=== PATIENT | female | born 1970 | race Two or more races ===

== ENCOUNTER 2020-11-12 08:57 | Inpatient (IN) | payer MEDICAID, OTHER ==
[~2020-11-12] VITALS: Ht 162.6 cm; Wt 93.3 kg
[2020-11-12] MEDS ORDERED: SODIUM CHLORIDE 0.9% 1,000 ML IV ONE ×2 (09:45)
[2020-11-12 09:50] LABS: Basophils # (auto) 0 10 ^3/uL (0-0.2); Eosinophils # (auto) 0 10 ^3/uL (0-0.8); Eosinophils % (auto) 0.3 % (0.0-7.0); Hemoglobin 11.9 g/dL (12.2-16.2); Lymphocytes # (auto) 0.7 10 ^3/uL (0.4-5.4); Monocytes # (auto) 0.4 10 ^3/uL (0-1.3); Neutrophils # (auto) 3.6 10 ^3/uL (1.6-8.6); Nucleated Red Blood Cells % 0.1 %; White Blood Cell 4.7 10^3/uL (4.4-10.8)
[2020-11-12 09:53] LABS: Basophils % (auto) 0.2 % (0.0-2.0); Hematocrit 36.8 % (36.0-46.0); Lymphocytes % (auto) 14.2 % (10.0-50.0); Mean Corpuscular Hemoglobin 25.9 pg (28.0-32.0); Mean Corpuscular Hgb Conc. 32.3 g/dL (32.0-36.0); Mean Corpuscular Volume 80.2 fL (80.0-100.0); Monocytes % (auto) 8.9 % (0.0-12.0); Neutrophils % (auto) 76.4 % (37.0-80.0); Red Blood Cells 4.59 10^6/uL (4.0-5.20)
[2020-11-12 09:55] LABS: Red Cell Distribution Width 21.3 % (11.8-14.3)
[2020-11-12 10:05] LABS: Albumin 3.4 g/dL (3.4-5.0); Calcium 9.1 mg/dL (8.5-10.1); Potassium 3.4 mmol/L (3.5-5.1)
[2020-11-12 10:09] LABS: BUN/Creatinine Ratio 7.3; Bilirubin, Total 1.4 mg/dL (0.2-1.0); Total Protein 9.7 g/dL (6.4-8.2)
[2020-11-12 10:14] LABS: Urine Bacteria FEW /hpf (None Seen); Urine Blood Negative /uL (Negative); Urine Mucus MODERATE (None Seen); Urine Specific Gravity 1.026 (1.001-1.035); Urine WBC 5 /hpf (0 - 5)
[2020-11-12] MEDS ORDERED: ONDANSETRON HCL 4 MG/2 ML VIAL IV ONE (10:30)
[2020-11-12] MEDS ORDERED: POTASSIUM EFFERVESENT TAB 25 MEQ PO ONE ×2 (10:30→11:15)
[2020-11-12] MEDS ORDERED: KETOROLAC TROMETH 30 MG/ML 1ML VIAL IV ONE (10:30)
[2020-11-12] MEDS ORDERED: cefTRIAXone 1GM/50ML D5W 50 ML IV ONE (11:15)
[2020-11-12] MEDS ORDERED: metroNIDAZOLE 500MG/100ML 100 ML IV ONE (11:15)
[2020-11-12] MEDS ORDERED: FOLIC ACID 1 MG, MULTIPLE VITAMIN 10 ML, MAGNESIUM SULF SDV 50% 8 MEQ, THIAMINE INJ 100... INJ SCH ×5 (12:00)
[2020-11-12] MEDS: PANTOPRAZOLE 40 MG/10 ML VIAL INJ IV SCH (12:18)
[2020-11-12] MEDS: LACTATED RINGER'S 1,000 ML IV SCH ×2 (12:18→21:21)
[2020-11-12 12:35] LABS: Amphetamine Screen, Urine NEGATIVE (NEGATIVE); Barbiturate Scree,Urine NEGATIVE (NEGATIVE); Benzodiazephine Screen, Urine POSITIVE (NEGATIVE); Cannabinoid Screen, Urine POSITIVE (NEGATIVE); Cocaine Screen, Urine NEGATIVE (NEGATIVE); Opiate Scree,Urine POSITIVE (NEGATIVE)
[2020-11-12 12:42] LABS: Phencyclidine Screen, Urine NEGATIVE (NEGATIVE)
[2020-11-12] MEDS: HYDROmorphone HCL 2 MG/ML VL IV PRN ×3 (12:54→21:20)
[2020-11-12] MEDS: ONDANSETRON HCL 4 MG/2 ML VIAL IV PRN (17:06)
[2020-11-12] MEDS: LORazepam 2MG/ML-1ML VIAL IV PRN (22:51)
[2020-11-13] MEDS: HYDROmorphone HCL 2 MG/ML VL IV PRN ×6 (01:22→23:45)
[2020-11-13] MEDS: ACETAMINOPHEN 325 MG TAB PO PRN ×2 (01:34→06:55)
[2020-11-13] MEDS: LACTATED RINGER'S 1,000 ML IV SCH ×3 (03:46→23:42)
[2020-11-13 04:44] VITALS: BP 133/83
[2020-11-13] MEDS ORDERED: CETI10TA2 PO (04:58)
[2020-11-13] MEDS ORDERED: FERR-20 PO (04:58)
[2020-11-13] MEDS ORDERED: MECL25TA18 PO (04:58)
[2020-11-13] MEDS ORDERED: THIA100T10 PO (04:58)
[2020-11-13] MEDS ORDERED: ALPR1TAB2 PO (04:58)
[2020-11-13] MEDS ORDERED: TRAZ100T3 PO (04:58)
[2020-11-13] MEDS: ONDANSETRON HCL 4 MG/2 ML VIAL IV PRN (05:40)
[2020-11-13 07:48] LABS: Basophils # (auto) 0 10 ^3/uL (0-0.2); Basophils % (auto) 0.3 % (0.0-2.0); Eosinophils # (auto) 0 10 ^3/uL (0-0.8); Eosinophils % (auto) 0.5 % (0.0-7.0); Lymphocytes # (auto) 0.9 10 ^3/uL (0.4-5.4); Lymphocytes % (auto) 21.5 % (10.0-50.0); Monocytes # (auto) 0.4 10 ^3/uL (0-1.3); White Blood Cell 4.2 10^3/uL (4.4-10.8)
[2020-11-13 07:51] LABS: Hematocrit 33.5 % (36.0-46.0); Hemoglobin 10.9 g/dL (12.2-16.2); Mean Corpuscular Hemoglobin 26.5 pg (28.0-32.0); Mean Corpuscular Hgb Conc. 32.5 g/dL (32.0-36.0); Mean Corpuscular Volume 81.3 fL (80.0-100.0); Monocytes % (auto) 8.8 % (0.0-12.0); Neutrophils # (auto) 2.9 10 ^3/uL (1.6-8.6); Neutrophils % (auto) 68.9 % (37.0-80.0); Nucleated Red Blood Cells % 0.1 %; Red Blood Cells 4.12 10^6/uL (4.0-5.20)
[2020-11-13 07:57] LABS: Albumin 2.6 g/dL (3.4-5.0); Calcium 8.3 mg/dL (8.5-10.1); Potassium 3.4 mmol/L (3.5-5.1)
[2020-11-13 08:00] VITALS: BP 119/74
[2020-11-13 08:01] LABS: BUN/Creatinine Ratio 5.1; Bilirubin, Total 1.1 mg/dL (0.2-1.0); Total Protein 7.5 g/dL (6.4-8.2)
[2020-11-13] MEDS: PANTOPRAZOLE 40 MG/10 ML VIAL INJ IV SCH (10:00)
[2020-11-13] MEDS ORDERED: POTASSIUM EFFERVESENT TAB 25 MEQ PO ONE (11:45)
[2020-11-13] MEDS ORDERED: cefTRIAXone 1GM/50ML D5W 50 ML IV ONE (11:45)
[2020-11-13 12:00] VITALS: BP 143/90
[2020-11-13] MEDS: FOLIC ACID 1 MG, MULTIPLE VITAMIN 10 ML, MAGNESIUM SULF SDV 50% 8 MEQ, THIAMINE INJ 100... INJ SCH ×5 (12:00)
[2020-11-13] MEDS: LORazepam 2MG/ML-1ML VIAL IV PRN (13:32)
[2020-11-13] MEDS: metroNIDAZOLE 500 MG TAB PO SCH ×2 (14:00→22:00)
[2020-11-13 15:56] VITALS: BP 124/76
[2020-11-13 22:17] VITALS: BP 150/89
[2020-11-14] MEDS: LACTATED RINGER'S 1,000 ML IV SCH ×2 (01:05→14:29)
[2020-11-14] MEDS: HYDROmorphone HCL 2 MG/ML VL IV PRN ×5 (03:50→23:42)
[2020-11-14 05:27] VITALS: BP 138/94
[2020-11-14] MEDS: metroNIDAZOLE 500 MG TAB PO SCH ×3 (06:00→21:46)
[2020-11-14 09:23] VITALS: BP 149/95
[2020-11-14] MEDS: cefTRIAXone 1GM/50ML D5W 50 ML IV SCH (11:10)
[2020-11-14] MEDS: PANTOPRAZOLE 40 MG/10 ML VIAL INJ IV SCH (11:10)
[2020-11-14] MEDS: ONDANSETRON HCL 4 MG/2 ML VIAL IV PRN ×2 (11:54→18:19)
[2020-11-14 13:11] VITALS: BP 137/95
[2020-11-14] MEDS: LORazepam 2MG/ML-1ML VIAL IV PRN ×2 (13:14→23:42)
[2020-11-14 14:15] LABS: INR 1.53 (0.9-1.15); Partial Thromboplastin Time 32.6 sec (23.0-31.2)
[2020-11-14 16:40] VITALS: BP 127/86
[2020-11-14] MEDS: TEMAZEPAM 15 MG CAP PO PRN (21:46)
[2020-11-14 22:00] VITALS: BP 134/87
[2020-11-15] VITALS (9 sets, daily range): BP systolic 102–146; BP diastolic 66–91
[2020-11-15] MEDS: HYDROmorphone HCL 2 MG/ML VL IV PRN ×7 (03:30→23:02)
[2020-11-15] MEDS: LACTATED RINGER'S 1,000 ML IV SCH ×2 (03:30→17:52)
[2020-11-15] MEDS: metroNIDAZOLE 500 MG TAB PO SCH ×3 (06:00→21:33)
[2020-11-15] MEDS: PANTOPRAZOLE 40 MG/10 ML VIAL INJ IV SCH (09:02)
[2020-11-15] MEDS: cefTRIAXone 1GM/50ML D5W 50 ML IV SCH (09:02)
[2020-11-15] MEDS: ONDANSETRON HCL 4 MG/2 ML VIAL IV PRN ×2 (09:03→18:27)
[2020-11-15] MEDS: FOLIC ACID 1 MG, MULTIPLE VITAMIN 10 ML, MAGNESIUM SULF SDV 50% 8 MEQ, THIAMINE INJ 100... INJ SCH ×5 (12:00)
[2020-11-15] MEDS ORDERED: ceFAZolin 1GM/50ML 50 ML IV ONE (12:30)
[2020-11-15] MEDS ORDERED: NEOSTIGMINE 1 MG/ML INJ (10mg/10ML VIAL) IV ONE (12:45)
[2020-11-15] MEDS ORDERED: GLYCOPYRROLATE 0.2 MG/ML 1ML VIAL IV ONE (12:45)
[2020-11-15] MEDS ORDERED: fentaNYL CITRATE 100 MCG/2 ML VL ONE (12:49)
[2020-11-15] MEDS ORDERED: MIDAZOLAM HCL 2MG/2ML 2ml VIAL (1mg/ml) ONE (12:49)
[2020-11-15] MEDS ORDERED: MEPERIDINE HCL (25 MG/ML) 1ML VIAL ONE (12:49)
[2020-11-15] MEDS ORDERED: SUCCINYLCHOLINE CHLORIDE 20 MG/ML 10ML VIAL IV ONE (12:57)
[2020-11-15] MEDS ORDERED: DexAMETHasone SOD PHOS 10MG/1ML VIAL INJ ONE (13:08)
[2020-11-15] MEDS ORDERED: BUPIVACAINE 0.25% INJ 50ML VIAL ONE (13:14)
[2020-11-15] MEDS ORDERED: PROPOFOL 10 MG/ML 20 ML IV ONE (13:15)
[2020-11-15] MEDS ORDERED: ONDANSETRON HCL 4 MG/2 ML VIAL ONE (13:15)
[2020-11-15] MEDS ORDERED: LABETALOL HCL 5 MG/ML 4ML SYRINGE IV PRN (13:30)
[2020-11-15] MEDS ORDERED: ONDANSETRON HCL 4 MG/2 ML VIAL IV PRN (13:30)
[2020-11-15] MEDS ORDERED: MIDAZOLAM HCL 2MG/2ML 2ml VIAL (1mg/ml) IV PRN (13:30)
[2020-11-15] MEDS ORDERED: KETOROLAC TROMETH 30 MG/ML 1ML VIAL IV ONE (13:30)
[2020-11-15] MEDS ORDERED: ePHEDrine SULFATE 50 MG/ML AMP IV PRN (13:30)
[2020-11-15] MEDS ORDERED: MORPHINE SULFATE 4 MG/ML SYR/VIAL IV PRN (13:30)
[2020-11-15] MEDS: LORazepam 2MG/ML-1ML VIAL IV PRN (20:11)
[2020-11-16] MEDS: HYDROmorphone HCL 2 MG/ML VL IV PRN ×2 (02:59→08:21)
[2020-11-16 05:08] VITALS: BP 131/80
[2020-11-16 05:15] LABS: Basophils # (auto) 0 10 ^3/uL (0-0.2); Eosinophils # (auto) 0 10 ^3/uL (0-0.8); Lymphocytes # (auto) 0.5 10 ^3/uL (0.4-5.4); Lymphocytes % (auto) 14.9 % (10.0-50.0); Monocytes # (auto) 0.4 10 ^3/uL (0-1.3); Neutrophils % (auto) 72.9 % (37.0-80.0)
[2020-11-16 05:16] LABS: Basophils % (auto) 0.1 % (0.0-2.0); Eosinophils % (auto) 0.1 % (0.0-7.0); Hematocrit 31.9 % (36.0-46.0); Hemoglobin 10.2 g/dL (12.2-16.2); Mean Corpuscular Hemoglobin 26.2 pg (28.0-32.0); Mean Corpuscular Volume 81.8 fL (80.0-100.0); Neutrophils # (auto) 2.4 10 ^3/uL (1.6-8.6); White Blood Cell 3.3 10^3/uL (4.4-10.8)
[2020-11-16 05:27] LABS: Red Cell Distribution Width 21.9 % (11.8-14.3)
[2020-11-16] MEDS: metroNIDAZOLE 500 MG TAB PO SCH ×3 (05:29→21:04)
[2020-11-16] MEDS: LACTATED RINGER'S 1,000 ML IV SCH (05:29)
[2020-11-16 05:32] LABS: Albumin 2.7 g/dL (3.4-5.0); Calcium 8.5 mg/dL (8.5-10.1); Potassium 3.7 mmol/L (3.5-5.1)
[2020-11-16 05:36] LABS: Bilirubin, Total 1.1 mg/dL (0.2-1.0); Total Protein 7.6 g/dL (6.4-8.2)
[2020-11-16 09:00] VITALS: BP 123/73
[2020-11-16] MEDS: PANTOPRAZOLE 40 MG/10 ML VIAL INJ IV SCH (10:25)
[2020-11-16] MEDS: cefTRIAXone 1GM/50ML D5W 50 ML IV SCH (10:25)
[2020-11-16 13:00] VITALS: BP 123/79
[2020-11-16] MEDS: LORazepam 2MG/ML-1ML VIAL IV PRN (14:35)
[2020-11-16] MEDS ORDERED: HYDROmorphone HCL 2 MG/ML VL IV PRN (15:30)
[2020-11-16 17:00] VITALS: BP 118/74
[2020-11-16] MEDS: TEMAZEPAM 15 MG CAP PO PRN (21:04)
[2020-11-16 21:49] VITALS: BP 134/79
[2020-11-17] MEDS ORDERED: HYDROmorphone HCL 2 MG/ML VL IV PRN (00:15)
[2020-11-17 04:38] VITALS: BP 126/53
[2020-11-17] MEDS: LORazepam 2MG/ML-1ML VIAL IV PRN ×2 (05:18→20:05)
[2020-11-17] MEDS: metroNIDAZOLE 500 MG TAB PO SCH ×3 (05:18→22:06)
[2020-11-17] MEDS: HYDROcodone-ACET 5/325MG TAB PO PRN ×2 (06:27→23:39)
[2020-11-17 08:00] VITALS: BP 128/82
[2020-11-17] MEDS ORDERED: HYDROmorphone HCL 2 MG/ML VL IV ONE (08:45)
[2020-11-17] MEDS: cefTRIAXone 1GM/50ML D5W 50 ML IV SCH (09:04)
[2020-11-17] MEDS: PANTOPRAZOLE 40 MG/10 ML VIAL INJ IV SCH (09:05)
[2020-11-17 12:00] VITALS: BP 117/80
[2020-11-17] MEDS: HYDROmorphone HCL 2 MG/ML VL IV PRN ×3 (13:59→22:06)
[2020-11-17] MEDS: ACETAMINOPHEN 325 MG TAB PO PRN (15:37)
[2020-11-17 16:00] VITALS: BP 123/75
[2020-11-17] MEDS: ONDANSETRON HCL 4 MG/2 ML VIAL IV PRN (20:05)
[2020-11-17 21:54] VITALS: BP 128/78
[2020-11-18] MEDS: HYDROmorphone HCL 2 MG/ML VL IV PRN ×5 (02:44→20:46)
[2020-11-18 04:43] VITALS: BP 121/74
[2020-11-18] MEDS: ACETAMINOPHEN 325 MG TAB PO PRN ×2 (04:48→16:32)
[2020-11-18] MEDS: metroNIDAZOLE 500 MG TAB PO SCH ×3 (06:00→21:44)
[2020-11-18 08:30] VITALS: BP 127/78
[2020-11-18] MEDS: HYDROcodone-ACET 5/325MG TAB PO PRN ×2 (09:44→18:37)
[2020-11-18] MEDS: PANTOPRAZOLE 40 MG/10 ML VIAL INJ IV SCH (09:44)
[2020-11-18] MEDS: cefTRIAXone 1GM/50ML D5W 50 ML IV SCH (09:45)
[2020-11-18] MEDS ORDERED: levoFLOXacin 500MG 100 ML IV ONE (12:00)
[2020-11-18 12:30] VITALS: BP 125/77
[2020-11-18] MEDS ORDERED: IODIXANOL 320MG/ML 100ML BTL IV ONE (12:31)
[2020-11-18] MEDS: SODIUM CHLORIDE 0.9% 1,000 ML IV SCH ×2 (12:35→22:00)
[2020-11-18] MEDS: LORazepam 2MG/ML-1ML VIAL IV PRN (13:28)
[2020-11-18 17:00] VITALS: BP 124/81
[2020-11-18] MEDS: TEMAZEPAM 15 MG CAP PO PRN (21:43)
[2020-11-18 22:00] VITALS: BP 112/71
[2020-11-19] MEDS: HYDROmorphone HCL 2 MG/ML VL IV PRN ×6 (01:10→22:20)
[2020-11-19] MEDS: LORazepam 2MG/ML-1ML VIAL IV PRN ×2 (04:20→16:21)
[2020-11-19 05:00] VITALS: BP 117/74
[2020-11-19 05:37] LABS: Basophils # (auto) 0 10 ^3/uL (0-0.2); Hemoglobin 10.7 g/dL (12.2-16.2); Mean Corpuscular Hemoglobin 26.1 pg (28.0-32.0); Mean Corpuscular Hgb Conc. 32.2 g/dL (32.0-36.0); Monocytes # (auto) 1.1 10 ^3/uL (0-1.3)
[2020-11-19 05:40] LABS: Basophils % (auto) 0.1 % (0.0-2.0); Eosinophils # (auto) 0 10 ^3/uL (0-0.8); Eosinophils % (auto) 0.5 % (0.0-7.0); Hematocrit 33.4 % (36.0-46.0); Lymphocytes % (auto) 12.8 % (10.0-50.0); Mean Corpuscular Volume 81.2 fL (80.0-100.0); Monocytes % (auto) 13.4 % (0.0-12.0); Neutrophils # (auto) 5.9 10 ^3/uL (1.6-8.6); Neutrophils % (auto) 73.2 % (37.0-80.0); Red Blood Cells 4.12 10^6/uL (4.0-5.20)
[2020-11-19 06:01] LABS: Potassium 3.3 mmol/L (3.5-5.1)
[2020-11-19 06:05] LABS: Red Cell Distribution Width 21.9 % (11.8-14.3)
[2020-11-19 06:12] LABS: Albumin 2.3 g/dL (3.4-5.0); BUN/Creatinine Ratio 10.7; Bilirubin, Total 1.6 mg/dL (0.2-1.0); Calcium 8.2 mg/dL (8.5-10.1); Total Protein 7.3 g/dL (6.4-8.2)
[2020-11-19] MEDS: metroNIDAZOLE 500 MG TAB PO SCH ×3 (06:18→22:20)
[2020-11-19] MEDS: SODIUM CHLORIDE 0.9% 1,000 ML IV SCH ×3 (08:00→18:29)
[2020-11-19 08:30] VITALS: BP 126/72
[2020-11-19] MEDS: PANTOPRAZOLE 40 MG/10 ML VIAL INJ IV SCH (08:42)
[2020-11-19] MEDS: levoFLOXacin 500MG 100 ML IV SCH (08:43)
[2020-11-19] MEDS: HYDROcodone-ACET 5/325MG TAB PO PRN ×2 (08:47→19:50)
[2020-11-19] MEDS ORDERED: POTASSIUM CHL 20 Meq TABLET PO ONE (10:45)
[2020-11-19] MEDS: DOCUSATE SOD 100 MG CAP PO PRN (11:20)
[2020-11-19 12:30] VITALS: BP 114/68
[2020-11-19 16:47] VITALS: BP 118/70
[2020-11-19 21:50] VITALS: BP 134/79
[2020-11-20] MEDS: HYDROmorphone HCL 2 MG/ML VL IV PRN ×3 (02:21→10:40)
[2020-11-20] MEDS: HYDROcodone-ACET 5/325MG TAB PO PRN ×3 (04:30→20:20)
[2020-11-20 05:14] VITALS: BP 126/78
[2020-11-20] MEDS: metroNIDAZOLE 500 MG TAB PO SCH ×3 (06:41→21:18)
[2020-11-20 09:00] VITALS: BP 185/82
[2020-11-20] MEDS: levoFLOXacin 500MG 100 ML IV SCH (10:00)
[2020-11-20] MEDS: PANTOPRAZOLE 40 MG TAB PO SCH (10:00)
[2020-11-20] MEDS: SODIUM CHLORIDE 0.9% 1,000 ML IV SCH (12:48)
[2020-11-20] MEDS: LORazepam 2MG/ML-1ML VIAL IV PRN (12:55)
[2020-11-20 13:00] VITALS: BP 131/79
[2020-11-20] MEDS ORDERED: HYDROmorphone HCL 2 MG/ML VL IV ONE (16:00)
[2020-11-20 16:41] VITALS: BP 150/86
[2020-11-20] MEDS: DOCUSATE SOD 100 MG CAP PO PRN (20:19)
[2020-11-20] MEDS: ONDANSETRON HCL 4 MG/2 ML VIAL IV PRN (20:20)
[2020-11-20 22:00] VITALS: BP 120/72
[2020-11-21] MEDS: LORazepam 2MG/ML-1ML VIAL IV PRN (02:24)
[2020-11-21 05:00] VITALS: BP 127/54
[2020-11-21] MEDS: metroNIDAZOLE 500 MG TAB PO SCH (05:43)
[2020-11-21] MEDS: ONDANSETRON HCL 4 MG/2 ML VIAL IV PRN (06:26)
[2020-11-21] MEDS: HYDROcodone-ACET 5/325MG TAB PO PRN (06:27)
[2020-11-21 09:00] VITALS: BP_SYST 135; BP_SYST 137; BP_DIAS 70; BP_DIAS 83
[2020-11-21] MEDS: PANTOPRAZOLE 40 MG TAB PO SCH (09:08)
[2020-11-21] MEDS ORDERED: levoFLOXacin 500 MG TAB PO SCH (10:00)
== END 2020-11-21 11:46 | disposition home or self-care (01) | DRG 710 ==
LOC: ER 08:57 → OVERFLOW 08:58 → WEST WING 11-13 02:43
PROVIDERS: ADMIT Nurse Practitioner Acute Care; ATTEND Internal Medicine
PROC: 0DNU4ZZ Release Omentum, Percutaneous Endoscopic Approach (ICD-10-PCS; 2020-11-15)
PROC: 30233K1 Transfusion of Nonautologous Frozen Plasma into Peripheral Vein, Percutaneous Approach (ICD-10-PCS; 2020-11-15)
PROC: 0FJ44ZZ Inspection of Gallbladder, Percutaneous Endoscopic Approach (ICD-10-PCS; principal; 2020-11-15 12:52)
DX: A41.9 Sepsis, unspecified organism (principal); K85.10 Biliary acute pancreatitis without necrosis or infection; K76.6 Portal hypertension; E87.6 Hypokalemia; K80.20 Calculus of gallbladder without cholecystitis without obstruction; E66.9 Obesity, unspecified; R16.2 Hepatomegaly with splenomegaly, not elsewhere classified; D25.9 Leiomyoma of uterus, unspecified; K74.60 Unspecified cirrhosis of liver; F41.9 Anxiety disorder, unspecified; D68.9 Coagulation defect, unspecified; F12.10 Cannabis abuse, uncomplicated; D64.9 Anemia, unspecified; E88.09 Other disorders of plasma-protein metabolism, not elsewhere classified; Z20.822 Contact with and (suspected) exposure to COVID-19; E87.1 Hypo-osmolality and hyponatremia; D69.6 Thrombocytopenia, unspecified; Z88.5 Allergy status to narcotic agent; Z68.35 Body mass index [BMI] 35.0-35.9, adult; Z79.899 Other long term (current) drug therapy; Z82.49 Family history of ischemic heart disease and other diseases of the circulatory system; Z83.3 Family history of diabetes mellitus
CPT/HCPCS: 36415; 74176; 74177; 76705; 78226; 80053; 80307; 81001; 81025; 82140; 83605; 83690; 84702; 85025; 85610; 85730; 86301; 86850; 86900; 86901; 87040; 87426; 93005; 96361; 96365; 96368; 96375; C9113; G0378; J0330; J0690; J0696; J1100; J1885; J1956; J2250; J2405; J2704; J3490; Q9967